=== PATIENT | male | born 1975 | race Caucasian/White ===

== ENCOUNTER 2016-09-30 16:55 | Emergency (ER) | payer BC ==
[2016-09-30 17:31] VITALS: BP 145/68
--- NOTE | 2016-09-30 18:35 | RAD ---
HISTORY: Right ankle injury COMPARISONS: None VIEWS: 3, Frontal, lateral, and oblique views of the right ankle FINDINGS: BONE DENSITY: Normal. BONES: There is no displaced fracture. 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 SOFT TISSUES: There is circumferential soft tissue swelling OTHER FINDINGS: None. IMPRESSION: SOFT TISSUE SWELLING. NO ACUTE OSSEOUS INJURY. IF SYMPTOMS PERSIST, RECOMMEND REPEAT IMAGING.
--- NOTE | 2016-09-30 18:47 | UC ---
Lower Extremity/Ankle HPI - HPI Summary HPI Summary: Rolled R ankle playing soccer 3 nights ago. Lots of bruising and swelling, thinks it's sprained but was urged to come here by family and friends. - History of Current Complaint Chief Complaint: UCLowerExtremity Stated Complaint: RIGHT ANKLE INJURY Time Seen by Provider: 09/30/16 18:17 Hx Obtained From: Patient Onset/Duration: Sudden Onset Severity Initially: Moderate Severity Currently: Mild Aggravating Factor(s): Standing, Ambulation Alleviating Factor(s): Rest Able to Bear Weight: Yes - Allergies/Home Medications Allergies/Adverse Reactions: Allergies Allergy/AdvReac Type Severity Reaction Status Date / Time No Known Allergies Allergy Verified 09/30/16 17:31 Home Medications: Home Medications Albuterol HFA INHALER* [Ventolin HFA Inhaler*] 2 puff INH Q4H PRN 09/30/16 [ History Confirmed 09/30/16] Ibuprofen TAB* [Advil TAB*] 400 mg PO Q6H PRN 09/30/16 [History Confirmed ] PMH/Surg Hx/FS Hx/Imm Hx Previously Healthy: Yes - Surgical History Surgical History: None - Family History Known Family History: Positive: Hypertension - Social History Lives: With Family Alcohol Use: Occasionally Substance Use Type: None Smoking Status (MU): Never Smoked Tobacco Review of Systems Constitutional: Negative Skin: Bruising Eyes: Negative ENT: Negative Respiratory: Negative Cardiovascular: Negative Gastrointestinal: Negative Genitourinary: Negative Motor: Negative Neurovascular: Negative Musculoskeletal: Arthralgia Neurological: Negative Psychological: Negative All Other Systems Reviewed And Are Negative: Yes Physical Exam Triage Information Reviewed: Yes Appearance: Well-Appearing, No Pain Distress, Well-Nourished Vital Signs: Initial Vital Signs Temp 97.5 F 09/30/16 17:27 Pulse 56 09/30/16 17:27 Resp 16 09/30/16 17:27 BP 145/68 09/30/16 17:27 Pulse Ox 100 09/30/16 17:27 Vital Signs Reviewed: Yes Eye Exam: Normal Eyes: Positive: Conjunctiva Clear ENT Exam: Normal ENT: Positive: Normal ENT inspection, Hearing grossly normal, Pharynx normal Dental Exam: Normal Neck exam: Normal Neck: Positive: Supple, Nontender, No Lymphadenopathy Respiratory Exam: Normal Respiratory: Positive: Chest non-tender, Lungs clear, Normal breath sounds, No respiratory distress, No accessory muscle use Cardiovascular Exam: Normal Cardiovascular: Positive: RRR, No Murmur Musculoskeletal Exam: Other - bruising, swelling in R ankle, no bony tenderness Musculoskeletal: Positive: Strength Intact, ROM Intact Neurological Exam: Normal Neurological: Positive: Alert Psychological Exam: Normal Lower Extremity Course/Dx - Differential Dx/Diagnosis Provider Diagnoses: R ankle sprain Discharge - Discharge Plan Condition: Stable Disposition: HOME Patient Education Materials: Ankle Sprain (ED) Referrals: Rudy Romero MD [Primary Care Provider] - Kenneth Bledsoe MD [Medical Doctor] - Additional Instructions: If you do not have clear improvement within 1-2 weeks, please see an orthopedist or your primary care provider.
== END 2016-09-30 18:48 | disposition home or self-care (01) ==
LOC: UCCORT 16:55
DX: S93.401A Sprain of unspecified ligament of right ankle, initial encounter (principal); X58.XXXA Exposure to other specified factors, initial encounter; Y93.66 Activity, soccer; Y92.9 Unspecified place or not applicable; R03.0 Elevated blood-pressure reading, without diagnosis of hypertension
CPT/HCPCS: 99201; G0463

== ENCOUNTER 2017-12-21 14:34 | Emergency (ER) | payer BC ==
[2017-12-21 15:01] VITALS: BP 137/87
--- NOTE | 2017-12-21 15:43 | UC ---
Skin Complaint HPI - HPI Summary HPI Summary: Expanded circular rash in the right upper abdomen over the past 2 1/2 to 3 weeks. C/O an area of numbness. - History of Current Complaint Chief Complaint: UCSkin Time Seen by Provider: 12/21/17 15:33 Stated Complaint: R SIDE RASH AND TIGHTNESS Hx Obtained From: Patient Onset/Duration: Sudden Onset Onset Severity: Mild Current Severity: Moderate Pain Intensity: 5 Location: Discrete - right upper abdomen Character: Pruritus, Painful - more of a tightness. Aggravating Factor(s): Nothing Alleviating Factor(s): Nothing Associated Signs & Symptoms: Positive: Numbness, Rash. Negative: Fever, Chills - Allergy/Home Medications Allergies/Adverse Reactions: Allergies Allergy/AdvReac Type Severity Reaction Status Date / Time No Known Allergies Allergy Verified 12/21/17 14:54 Home Medications: Home Medications Loratadine/Pseudoephedrine [Claritin-D 24 Hour Tablet] 1 tab PO DAILY 12/21/17 [ History Confirmed 12/21/17] Naproxen Sodium [Aleve] 440 mg PO BID PRN 12/21/17 [History Confirmed 12/21/17] Review of Systems Skin: Rash Is Patient Immunocompromised?: No All Other Systems Reviewed And Are Negative: Yes PMH/Surg Hx/FS Hx/Imm Hx Previously Healthy: Yes - Surgical History Surgical History: None - Family History Known Family History: Positive: Cardiac Disease, Hypertension, Diabetes - Social History Occupation: Employed Full-time Lives: Alone Alcohol Use: Occasionally Substance Use Type: None Smoking Status (MU): Never Smoked Tobacco Physical Exam Triage Information Reviewed: Yes Appearance: Well-Appearing, No Pain Distress, Well-Nourished Vital Signs: Initial Vital Signs Temp 98.8 F 12/21/17 14:55 Pulse 67 12/21/17 14:55 Resp 18 12/21/17 14:55 BP 137/87 12/21/17 14:55 Pulse Ox 100 12/21/17 14:55 Vital Signs Reviewed: Yes Neck exam: Normal Respiratory Exam: Normal Cardiovascular Exam: Normal Musculoskeletal Exam: Normal Neurological Exam: Normal Psychological Exam: Normal Skin: Positive: rashes - Circular rash which is a little asymmetric in the right upper quadrant. Course/Dx - Differential Diagnoses - Skin Complaint Differential Diagnoses: Cellulitis, Contact Dermatitis, Tick Born Illness - Diagnoses Provider Diagnoses: Primary lyme disease. Erythema chronica migrans Discharge - Sign-Out/Discharge Documenting (check all that apply): Discharge/Admit/Transfer - Discharge Plan Condition: Stable Disposition: HOME Prescriptions: DOXYcycline CAP(*) [DOXYcycline 100MG CAP(*)] 100 mg PO BID #20 cap Patient Education Materials: Lyme Disease (ED), Doxycycline (By mouth) Referrals: Rudy Romero MD [Primary Care Provider] - 1 Day - Billing Disposition and Condition Condition: STABLE Disposition: Home
== END 2017-12-21 16:15 | disposition home or self-care (01) ==
LOC: UCCORT 14:34
DX: A69.20 Lyme disease, unspecified (principal)
CPT/HCPCS: 99212; G0463